=== PATIENT | female | born 1975 | race Caucasian/White ===

== ENCOUNTER 2016-11-24 03:02 | Observation (INO) | payer OTHER ==
[2016-11-24] VITALS (7 sets, daily range): BP systolic 105–132; BP diastolic 74–81; PULSE 82–114; RESP 16–27; O2SAT 95–98
[~2016-11-24] VITALS: Ht 182.9 cm; Wt 109.0 kg
[~2016-11-24 03:02] MED LIST: ALBU8.5H2 INHALATION; ARIP10TA14 PO; CEPH500C PO; FLUO20CA25 PO; HYDR-4003 PO; KLO1T PO; LANS30CA PO; ONDA4TAB12 PO; ONDA8TAB7 PO; SUCR1TAB30 PO; [UNRECOGNIZED DRUG - OTHER] BOTH_EYES
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
[2016-11-24 03:52] LABS: BASOPHILS % (AUTO) 0.4 % (0-3); EOSINOPHILS % (AUTO) 2.7 % (0-5); MONOCYTES % (AUTO) 8.3 % (4-12); Mean Corpuscular Hemoglobin 30.7 pg (27.0-35.0); Mean Corpuscular Volume 90.4 fL (81-100); NEUTROPHILS % (AUTO) 73.8 % (40-74); Platelet Count 286 bil/L (150-400)
[2016-11-24 04:16] LABS: Magnesium 1.9 mg/dL (1.6-2.6)
[2016-11-24 05:01] LABS: APPEARANCE,URINE HAZY (CLEAR,HAZY); COLOR,URINE DARK YELLOW (YELLOW)
[2016-11-24 05:02] LABS: OCCULT BLOOD,URINE MODERATE (NEGATIVE); UROBILINOGEN,URINE NORMAL (NORMAL)
[2016-11-24] MEDS ORDERED: HYDROcodone-APAP 5-325 mg Tablet PO ONE (05:55)
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
[2016-11-24] MEDS ORDERED: Ondansetron 2 mg/mL 2 mL Inj IVPUSH PRN ×2 (07:15→07:35)
[2016-11-24] MEDS ORDERED: Polyethylene Glycol (PEG) 17 Gm Powder PO PRN (07:35)
[2016-11-24] MEDS ORDERED: Alum-Mag Hydrox-Simeth 30 mL Suspension PO PRN (07:35)
[2016-11-24] MEDS: Lactated Ringer's 1,000 ML IV SCH ×2 (08:06→20:04)
--- NOTE | 2016-11-24 08:07 | NUR ---
Arrival to 1029 Pt arrival to room at 0730. Pt is hyperactive/restless with very dilated pupils, mother at bedside. Immediate request for pain management "to the point of me not remembering any of this" with nonspecific description of generalized pain. Denies nausea. Breakfast has been ordered. Tele placed on pt and discussion about staying in bed except BR privileges until MRI and EEG are completed. q 4hr Neuro checks to be completed.
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
[2016-11-24] MEDS ORDERED: ALBU8.5H2 INHALATION (11:41)
[2016-11-24] MEDS ORDERED: CHOL500051 PO (11:41)
[2016-11-24] MEDS ORDERED: LISD70CA2 PO (11:41)
[2016-11-24] MEDS ORDERED: DIPH25CA6 PO (11:41)
[2016-11-24] MEDS ORDERED: ZLP10T PO (11:41)
[2016-11-24] MEDS ORDERED: PROZ20 PO (11:41)
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
[2016-11-25] VITALS: BP 112/69; PULSE 79; RESP 16; O2SAT 97
[2016-11-25] MEDS: Lactated Ringer's 1,000 ML IV SCH (03:12)
--- NOTE | 2016-11-25 03:59 | NUR ---
Sleep Pt able to sleep well through night, declined offer of pain medication for back ache; heating pad providing adequate relief. IV fluids infusing, able to ambulate to BR with SBA and steady gait. Obtained order for nicotine substitute for craving but pt declined to use at this time. Home meds being held in pharmacy, will D/C with pt. Hourly rounding ongoing.
[2016-11-25 05:17] VITALS: BP 124/85; PULSE 71; RESP 20; O2SAT 97
[2016-11-25 06:11] VITALS: PULSE 71
--- NOTE | 2016-11-25 06:40 | PROCED ---
[address] [address] EEG PATIENT: TERRENCE COREA : 1975 MR#: [id number] ADMIT: 11/24/2016 JOB ID: [id number] DATE: 11/24/2016 HISTORY: The patient is a 41-year-old woman with altered mental status. TECHNICAL DESCRIPTION: This digital EEG was recorded using 25 scalp and ear, and two EKG electrodes. It was reviewed in bipolar and referential montages following reformatting of the 10-20 [employer] Electrode Placement System. During the recording, the patient was noted to be awake. There was abundant myogenic and movement artifact which limited the study. There was bilateral frontally predominant beta activity noted. The background was composed of a 9 hertz, 10-20 microvolt symmetrical and reactive posterior dominant rhythm that attenuated with eye opening. The rest of the background was composed of low voltage faster frequencies. There were no focal, lateralized, or epileptiform discharges noted. There were no seizures seen. Sleep was not appreciated. It should be noted that this study was significantly limited due to abundant motion and movement artifact. Hyperventilation was not performed. Photic stimulation from 1-30 hertz did not elicit any photic driving response. The EKG rhythm strip revealed a heart rate of 60-80 beats per minute with no apparent arrhythmias. IMPRESSION: This electroencephalogram performed in the awake state is limited by abundant myogenic and movement artifact. However, was within normal limits. If clinically indicated, a repeat study capturing her background activity and associated with less myogenic and movement artifact, as well as the transition to and from sleep and sleep, may be warranted. Clinical correlation is advised.
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
--- NOTE | 2016-11-25 11:53 | NUR ---
Discharge pt. dc'd at 1029 this am. Medications reviewed with pt; verbalized understanding; no new prescriptions or changes to home regimen; verbalized understanding need take medications as directed and to keep follow up appointments; appointments to be made per pt. when offices open on Sunday; phone numbers provided. Denied pain or discomfort; vss. PIV dc'd; catheter intact. No questions about care. Home medications retrieved from pharmacy and given to pt. while escorting pt. via w/c to private vehicle (mom took pt. home).
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
== END 2016-11-25 10:29 | disposition home or self-care (01) ==
LOC: SED 03:15 → OSC 07:11
PROVIDERS: ADMIT Internal Medicine; ATTEND Internal Medicine
DX: R41.82 Altered mental status, unspecified (principal); R55 Syncope and collapse; V49.9XXA Car occupant (driver) (passenger) injured in unspecified traffic accident, initial encounter; Y93.89 Activity, other specified; Y92.410 Unspecified street and highway as the place of occurrence of the external cause; F15.10 Other stimulant abuse, uncomplicated; F41.8 Other specified anxiety disorders; F90.9 Attention-deficit hyperactivity disorder, unspecified type; F11.20 Opioid dependence, uncomplicated; K21.9 Gastro-esophageal reflux disease without esophagitis; J45.909 Unspecified asthma, uncomplicated; F17.210 Nicotine dependence, cigarettes, uncomplicated; F12.90 Cannabis use, unspecified, uncomplicated; Z79.51 Long term (current) use of inhaled steroids
CPT/HCPCS: 36415; 70450; 71010; 72100; 72125; 80053; 81000; 81025; 82550; 82948; 83735; 85025; 87086; 87088; 93005; 95816; 96372; 96374; 96376; 99285; G0378; G0480; J1885; J2060; J7120